=== PATIENT | male | born 1995 | race American Indian/Alaskan Native ===

== ENCOUNTER 2018-02-07 13:23 | Emergency (ER) | payer SELFPAY ==
[2018-02-07 13:41] VITALS: BP 114/69
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
== END 2018-02-07 16:40 | disposition home or self-care (01) ==
LOC: ED 13:23
DX: G43.009 Migraine without aura, not intractable, without status migrainosus (principal)
CPT/HCPCS: 99281

== ENCOUNTER 2019-10-21 18:25 | Emergency (ER) | payer OTHER ==
[2019-10-21 18:37] VITALS: BP 100/56
[2019-10-21] MEDS: IBUPROFEN 800 MG TAB PO ONE (20:05)
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
== END 2019-10-21 21:13 | disposition home or self-care (01) ==
LOC: ED 18:25
DX: S13.4XXA Sprain of ligaments of cervical spine, initial encounter (principal); S39.012A Strain of muscle, fascia and tendon of lower back, initial encounter; S46.911A Strain of unspecified muscle, fascia and tendon at shoulder and upper arm level, right arm, initial encounter; Z79.899 Other long term (current) drug therapy; V49.59XA Passenger injured in collision with other motor vehicles in traffic accident, initial encounter; Y93.89 Activity, other specified; Y92.488 Other paved roadways as the place of occurrence of the external cause; Y99.8 Other external cause status
CPT/HCPCS: 72040; 72100; 99283